=== PATIENT | female | born 1985 | race Caucasian/White ===

== ENCOUNTER 2023-01-27 19:57 | Emergency (ER) | payer MEDICARE ==
[2023-01-27] MEDS ORDERED: Ketamine HCl 50 MG/ML IV ONE (20:23)
[2023-01-27 20:28] VITALS: BP 186/101; PULSE 80; O2SAT 100
--- NOTE | 2023-01-27 21:43 | ERPHSYRPT ---
- History of Present Illness Time Seen by Provider: 01/27/23 20:40 Source: patient Exam Limitations: no limitations Patient Subjective Stated Complaint: pt states "I broke my L ankle on 01/19. I went to the hospital in [facility] and they splinted it. today is really nelida ting and the norcos aren't helping." Triage Nursing Assessment: pt presents to ED via wheelchair with splinted L lower leg d/t known broken L ankle since 01/19/23, pt alert and oriented x3, pt c/o increased pain in L lower leg today, pt has taken the norcos that [facility] has given her with no relief, pt has not seen a ortho doctor at this time, pt states "I haven't an ortho doctor that I like or that takes my insurance." Physician History: Patient is a 37-year-old female presents to our ED for evaluation of left anterior ankle pain. Patient states she fractured her left ankle on 430. Patient was seen at [facility]. A splint was applied. Patient was instructed to follow-up with orthopedics. Patient states her insurance has p recluded her from following up. Patient states she has not seen an orthopedic doctor that she likes. Pain described as an ache that is localized. No radiation. Pain worse with weightbearing. Pain improved with rest. Patient voices no other complaints or concerns at this time. Patient denies interval injury Portions of this note were created with voice recognition technology. There may be grammatical, spelling, punctuation or sound alike errors Timing/Duration: today Severity: moderate Modifying Factors: Improves With: nothing Associated Symptoms: denies symptoms Allergies/Adverse Reactions: atropine [From ] Allergy (Verified 01/27/23 20:08) dicyclomine [From Bentyl] Allergy (Verified 01/27/23 20:08) droperidol Allergy (Verified 01/27/23 20:08) Fish Containing Products Allergy (Verified 01/27/23 20:08) hyoscyamine [From ] Allergy (Verified 01/27/23 20:08) ketorolac [From Toradol] Allergy (Verified 01/27/23 20:08) ondansetron [From Zofran] Allergy (Verified 01/27/23 20:08) Penicillins Allergy (Verified 01/27/23 20:08) phenobarbital [From ] Allergy (Verified 01/27/23 20:08) scopolamine [From ] Allergy (Verified 01/27/23 20:08) vancomycin Allergy (Verified 01/27/23 20:08) Hx Tetanus, Diphtheria Vaccination/Date Given: Yes Hx Influenza Vaccination/Date Given: No Hx Pneumococcal Vaccination/Date Given: No Immunizations Up to Date: Yes Travel Risk - International Travel Have you traveled outside of the country in past 3 weeks: No - Coronavirus Screening Are you exhibiting any of the following symptoms?: No Close contact with a COVID-19 positive Pt in past 14-21 Days: No - Vaccine Status Have you recieved a Covid-19 vaccination: Yes [employer]: Moderna - Vaccination Dates Date of 2cond Vaccination (if applicable): 2020 - Review of Systems Constitutional: No Symptoms, No Fever, No Chills Eyes: No Symptoms Ears, Nose, & Throat: No Symptoms Respiratory: No Symptoms, No Cough, No Dyspnea Cardiac: No Symptoms, No Chest Pain, No Edema, No Syncope Abdominal/Gastrointestinal: No Symptoms, No Abdominal Pain, No Nausea, No Vomiting, No Diarrhea Genitourinary Symptoms: No Symptoms, No Dysuria Musculoskeletal: No Symptoms, No Back Pain, No Neck Pain Skin: No Symptoms, No Rash Neurological: No Symptoms, No Dizziness, No Focal Weakness, No Sensory Changes Psychological: No Symptoms Endocrine: No Symptoms Hematologic/Lymphatic: No Symptoms Immunological/Allergic: No Symptoms All Other Systems: Reviewed and Negative - Past Medical History Pertinent Past Medical History: Yes Neurological History: Migraines ENT History: No Pertinent History Cardiac History: High Cholesterol, Hypertension, Myocardial Infarction (CT) Respiratory History: Pneumonia Endocrine Medical History: Diabetes Type I Musculoskeletal History: No Pertinent History GI Medical History: Pancreatitis History: No Pertinent History Psycho-Social History: No Pertinent History Female Reproductive Disorders: No Pertinent History Other Medical History: MRSA - Past Surgical History Past Surgical History: Yes Neuro Surgical History: No Pertinent History Cardiac: Cardiac Catheterization, Cardiac Stent Respiratory: No Pertinent History Gastrointestinal: Appendectomy, Cholecystectomy Musculoskeletal: Orthopedic Surgery Other Surgical History: port - Social History Smoking Status: Never smoker Exposure to second hand smoke: Yes Drug Use: none Patient Lives Alone: No - Female History Hx Last Menstrual Period: 12/21/22 Hx Now: No - Nursing Vital Signs Nursing Vital Signs: Initial Vital Signs Temperature 98.2 F 01/27/23 20:09 Pulse Rate 80 01/27/23 20:09 Respiratory Rate 16 01/27/23 20:09 Blood Pressure 186/101 01/27/23 20:09 O2 Sat by Pulse Oximetry 100 01/27/23 20:09 Pain Scale Pain Intensity 9 - Physical Exam General Appearance: no apparent distress, alert Eye Exam: PERRL/EOMI, eyes nml inspection Ears, Nose, Throat Exam: normal ENT inspection, TMs normal, pharynx normal, moist mucous membranes Neck Exam: normal inspection, non-tender, supple, full range of motion Respiratory Exam: normal breath sounds, lungs clear, airway intact, No respiratory distress Cardiovascular Exam: regular rate/rhythm, normal heart sounds, normal peripheral pulses Gastrointestinal/Abdomen Exam: soft, normal bowel sounds, No tenderness, No mass Back Exam: normal inspection, normal range of motion, No CVA tenderness, No vertebral tenderness Extremity Exam: normal inspection, normal range of motion, pelvis stable Neurologic Exam: alert, oriented x 3, cooperative, normal mood/affect, nml cerebellar function, nml station & gait, sensation nml, No motor deficits Skin Exam: normal color, warm, dry, No rash Lymphatic Exam: No adenopathy SpO2 Interpretation: normal SpO2: 100 O2 Delivery: Room Air - Course Nursing assessment & vital signs reviewed: Yes Ordered Tests: Medication Summary Discontinued Medications Generic Name Dose Route Start Last Admin Trade Name Freq PRN Reason Stop Dose Admin Ketamine HCl 6 mg 01/27/23 20:23 01/27/23 20:58 Ketamine Hcl 50 Mg/Ml IV 01/27/23 20:24 6 mg STAT ONE Administration - Progress Progress: improved Progress Note: Splint was removed. Patient was reassessed. Patient received ketamine for pain control. Pain significantly improved. Patient declined additional pain medication. Extremity examination was essentially nonremarkable. There are some tenderness to the anterior ankle. And distal tibia however compartments are soft. Cap refill less than 2 seconds. PT DP pulse palpable. No open or draining lesions. Patient referred to orthopedic clinic for follow-up. Portions of this note were created with voice recognition technology. There may be grammatical, spelling, punctuation or sound alike errors Complexity of problem addressed is low acute uncomplicated Complex of data reviewed and analyzed is none. No specialized testing ordered. Diagnosis made based on history and physical exam. Risk of complication and or risk of morbidity/mortality of patient management is minimal. We applied Venu wrap. Patient referred to orthopedic clinic for follow-up tomorrow. Patient voices no other complaints or concerns at this time. Patient agrees to follow-up as discussed. Portions of this note were created with voice recognition technology. There may be grammatical, spelling, punctuation or sound alike errors 01/28/23 01:56 Counseled pt/family regarding: diagnosis, need for follow-up - Departure Departure Disposition: Home Clinical Impression: Leg pain, anterior Condition: Stable Critical Care Time: No Referrals: ANAMARIA VALLES DPM [ACTIVE STAFF] - Follow up/PCP as directed DOCTOR,NO FAMILY [Primary Care Provider] - Follow up/PCP as directed Additional Instructions: Discharge/Care Plan DELANO MCGEE was seen on 01/27/23 in the Emergency Room. The patient was counseled regarding Diagnosis,Lab results, Imaging studies, need for follow up and when to return to the Emergency Room. Prescriptions given: Discharge Note I have spoken with the patient and/or caregivers. I have explained the patient's condition, diagnosis and treatment plan based on the information available to me at this time. I have answered the patient's and/or caregiver's questions and addressed any concerns. The patient and/or caregivers have as good understanding of the patient's diagnosis, condition and treatment plan as can be expected at this point. The vital signs have been stable. The patient's condition is stable and appropriate for discharge from the emergency department. The patient will pursue further outpatient evaluation with the primary care physician or other designated or consulting physician as outlined in the discharge instructions. The patient and/or caregivers are agreeable to this plan of care and follow-up instructions have been explained in detail. The patient and/or caregivers have received these instruction. The patient/and or caregivers are aware that any significant change in condition or worsening of symptoms should prompt an immediate return to this or the closest emergency department or call 911. Outpatient Orders: Ortho Referral Time Frame: 1 Day, Facility: [facility], Location: ORTHO CLINIC
== END 2023-01-27 21:57 | disposition home or self-care (01) ==
LOC: ED 19:57
DX: M79.662 Pain in left lower leg (principal); M25.572 Pain in left ankle and joints of left foot; E10.9 Type 1 diabetes mellitus without complications; E78.5 Hyperlipidemia, unspecified; I10 Essential (primary) hypertension
CPT/HCPCS: 99283